=== PATIENT | male | born 1970 | race Caucasian/White ===

== ENCOUNTER 2016-11-02 21:08 | Emergency (ER) | payer MEDICARE, OTHER ==
[2016-11-02] MEDS ORDERED: ALU/MAG/SIM 30 ML UDC ONE (21:40)
[2016-11-02] MEDS ORDERED: LIDOCAINE 2% VISC 15 ML UDC ONE (21:40)
[2016-11-02] MEDS ORDERED: ONDANSETRON 4 MG VIAL ONE (21:40)
[2016-11-02] MEDS ORDERED: SODIUM CHLORIDE 0.9% 1,000 ML ONE (21:40)
== END 2016-11-02 23:20 ==
LOC: ER 21:08
DX: R07.2 Precordial pain (principal); R07.89 Other chest pain; R11.2 Nausea with vomiting, unspecified; K21.9 Gastro-esophageal reflux disease without esophagitis; Z79.899 Other long term (current) drug therapy; F17.210 Nicotine dependence, cigarettes, uncomplicated
CPT/HCPCS: 36415; 71010; 80053; 82550; 83735; 84484; 85025; 85610; 85730; 93005; J2405; 96361; 96374